=== PATIENT | female | born 1975 | race Caucasian/White ===

== ENCOUNTER 2017-05-07 10:08 | Emergency (ER) | payer OTHER ==
[2017-05-07 10:20] VITALS: BP 112/66; PULSE 66; TEMP 98.1; BMI 23.6
--- NOTE | 2017-05-07 10:47 | PDOC ---
History of Present Illness - General History Source: Patient Exam Limitations: No Limitations - History of Present Illness Initial Comments: 05/07/17 12:25 The patient is a 41 year old female, with a significant past medical history of Ovarian cyst and possible ovarian torsion s/p ooperhectomy in march presents to the emergency department with diffuse abdominal pain for the past 2 days. Patient endorses intermittent, mild, diffuse abdominal pain that radiates to her lower back, Patient reports associated nausea, vomiting and dizziness. Patients pain is similar in nature to her previous episode for which she presented to [facility], had a CT and then a US which showed possible torsion and she was taken to OR and her ovary was removed. Patient denies fever/chills. She denies chest pain, headache. She denies diarrhea or constipation. She denies dysuria, frequency, urgency or hematuria. Pt notes last episode was around 9:30, and her pain is significantly improved. Denies vag bleeding or discharge PSHx: Ovarian cyst removal PCP: None <Zita Smith - Last Filed: 05/07/17 12:24> <Con Whaley - Last Filed: 05/07/17 15:03> - General Chief Complaint: Pain Stated Complaint: ABD PAIN Past History <Zita Smith - Last Filed: 05/07/17 12:24> - Past Medical History Other medical history: denies - Suicide/Smoking/Psychosocial Hx Smoking History: Never smoked Have you smoked in the past 12 months: No Information on smoking cessation initiated: No Hx Alcohol Use: No Drug/Substance Use Hx: No Substance Use Type: None <Con Whaley - Last Filed: 05/07/17 15:03> - Past Medical History Allergies/Adverse Reactions: Allergies Allergy/AdvReac Type Severity Reaction Status Date / Time No Known Allergies Allergy Verified 05/07/17 10:20 Review of Systems - Review of Systems Able to Perform ROS?: Yes Comments:: 05/07/17 12:25 CONSTITUTIONAL: No reported: Fever, Chills, Diaphoresis, Generalized Weakness, Malaise, Loss of Appetite HEENT: No reported: Rhinorrhea, Nasal Congestion, Throat Pain, Throat Swelling, Difficulty Swallowing, Mouth Swelling, Ear Pain, Eye Pain, Visual Changes CARDIOVASCULAR: No reported: Chest Pain, Syncope, Palpitations, Irregular Heart Rate, Lightheadedness, Peripheral Edema RESPIRATORY: No reported: Cough, Shortness of Breath, SOB with Exertion, Orthopnea, Wheezing , Stridor, Hemoptysis GASTROINTESTINAL: +Abdominal pain Nausea, Vomiting. No reported: , Abdominal Distension,, Diarrhea, Constipation, Melena, Hematochezia GENITOURINARY: No reported: Dysuria, Frequency, Urgency, Hesitancy, Flank Pain, Genital Pain MUSCULOSKELETAL: No reported: Myalgia, Arthralgia, Joint Swelling, Back pain, Neck Pain SKIN: No reported: Rash, Itching, Pallor HEMEATOLOGIC/IMMUNOLOGIC: No reported: Easy Bleeding, Easy Bruising, Lymphadenopathy, Frequent infections ENDOCRINE: No reported: Unexplained Weight Gain, Unexplained Weight Loss, Heat Intolerance , Cold Intolerance NEUROLOGIC: No reported: Headache, Focal Weakness, Paresthesias, Vertigo, Lightheadedness, Unsteady Gait, Seizure, Mental Status Changes, Incontinence PSYCHIATRIC: No reported: Anxiety, Depression <Zita Smith - Last Filed: 05/07/17 12:24> *Physical Exam - Vital Signs Last Vital Signs Temp Pulse Resp BP Pulse Ox 98.1 F 66 18 112/66 100 05/07/17 10:18 05/07/17 10:18 05/07/17 10:18 05/07/17 10:18 05/07/17 10:18 - Physical Exam Comments: 05/07/17 12:25 GENERAL: The patient is awake, alert, and fully oriented, Nontoxic - in no acute distress. HEAD: Normocephalic, atraumatic. EYES: extraocular movements intact, sclera anicteric, conjunctiva clear. ENT: Normal voice, Moist mucous membranes. NECK: Normal range of motion, supple LUNGS: Breath sounds equal, clear to auscultation bilaterally. No wheezes, no rhonchi, no rales. HEART: Regular rate and rhythm, without murmur, rub or gallop. ABDOMEN: +Mild diffuse abdominal tenderness. Soft, nontender, normoactive bowel sounds. No guarding, no rebound.No CVA tenderness EXTREMITIES: Normal range of motion, no edema. No clubbing or cyanosis. No cords, erythema, or tenderness. NEUROLOGICAL: No facial asymmetry, Normal speech, PSYCH: Normal mood, normal affect. SKIN: Warm, Dry, normal turgor <Zita Smith - Last Filed: 05/07/17 12:24> - Vital Signs Last Vital Signs Temp Pulse Resp BP Pulse Ox 98.1 F 66 18 112/66 100 05/07/17 10:18 05/07/17 10:18 05/07/17 10:18 05/07/17 10:18 05/07/17 10:18 <Con Whaley - Last Filed: 05/07/17 15:03> Heart Score/ECG Review - ECG Impressions Comment:: 05/07/17 12:54 Twelve-lead EKG was performed and reviewed by me. There is normal sinus rhythm with a rate of 47 The axis is normal. The intervals are normal. There is normal R wave progression There are no ST or T wave abnormalities. Impression: sinus bradycardia <Con Whaley - Last Filed: 05/07/17 15:03> ED Treatment Course - LABORATORY CBC & Chemistry Diagram: 05/07/17 11:46 05/07/17 11:46 - ADDITIONAL ORDERS Additional order review: Laboratory Results 05/07/17 05/07/17 05/07/17 12:00 11:46 11:46 Sodium 138 Potassium 4.1 Chloride 106 Carbon Dioxide 29 Anion Gap 3 L BUN 17 Creatinine 0.6 Creat Clearance w eGFR > 60 Random Glucose 76 Calcium 8.8 Total Bilirubin 0.3 AST 14 L ALT 16 Total Protein 7.3 Albumin 3.8 Lipase 197 Serum , Qual Negative Urine Color Ltyellow Urine Appearance Slcloudy Urine pH 7.0 Urine Protein Negative Urine Glucose (UA) Negative Urine Ketones Negative Urine Blood Negative Urine Nitrite Negative Urine Bilirubin Negative Urine Urobilinogen Negative 05/07/17 11:46 RBC 3.77 MCV 92.9 MCHC 33.2 RDW 13.4 MPV 10.2 Neutrophils % 45.8 Lymphocytes % 44.2 H Monocytes % 8.5 Eosinophils % 1.0 Basophils % 0.5 - Medications Given in the ED: ED Medications Discontinued Medications Generic Name Dose Route Start Last Admin Trade Name Freq PRN Reason Stop Dose Admin Morphine Sulfate 2 mg 05/07/17 11:33 05/07/17 12:13 Morphine Injection - IVPUSH 05/07/17 11:34 2 mg ONCE ONE Administration Ondansetron HCl 4 mg 05/07/17 11:33 05/07/17 12:13 Zofran Injection IVPB 05/07/17 11:34 4 mg ONCE ONE Administration <Zita Smith - Last Filed: 05/07/17 12:24> - LABORATORY CBC & Chemistry Diagram: 05/07/17 11:46 05/07/17 11:46 <Con Whaley - Last Filed: 05/07/17 15:03> Medical Decision Making - Medical Decision Making 05/07/17 11:32 41y F hx of ovarian torsion s/p ooperhectomy in march presents with a similar intermittent abdominal pain since saturday, last episode was approx 9:30 today wassociated w/ n/v w/o fever/chils, dysuria, hematuria, frequency ppts exam noted for mild diffuse abd tenderness will obtain blood work will obtain TVUS to r/o torsion ua to ro will reassess 05/07/17 12:55 05/07/17 14:59 pts blood work reviewed and is unremarakble UA negative pts TVUS is also negative for torsion, +fibroids pt denies any current pain will dc with psychosocial rehabilitation counselor fu return precautionsw ere discussed - i discussed importance of returning immediately if she has any pain rather than waiting a few days. pt states she agrees. I discussed the physical exam findings, ancillary test results and final diagnoses with the patient. I answered all of the patient's questions. The patient was satisfied with the care received and felt comfortable with the discharge plan and treatment plan. The patient will call their primary care physician within 24 hours to arrange follow-up and will return to the Emergency Department with any new, persistent or worsening symptoms. <Con Whaley - Last Filed: 05/07/17 15:03> *DC/Admit/Observation/Transfer - Attestations Scribe Attestion: 05/07/17 12:26 Documentation prepared by Zita Smith, acting as medical artist for Con Whaley MD <Zita Smith - Last Filed: 05/07/17 12:24> - Discharge Dispostion Admit: No <Con Whaley - Last Filed: 05/07/17 15:03> Diagnosis at time of Disposition: Abdominal pain Qualifiers: Abdominal location: generalized Qualified Code(s): R10.84 - Generalized abdominal pain; R10.84 - Generalized abdominal pain - Discharge Dispostion Disposition: HOME Condition at time of disposition: Improved - Referrals Referrals: Duy Duff MD [Staff Physician] - - Patient Instructions Printed Discharge Instructions: DI for Abdominal Pain-Adult Additional Instructions: Return to the emergency department immediately with ANY new, persistent or worsening symptoms including recurrent abdominal pain, fevers, inability to tolerate oral intake, chest pain, shortness of breath or any other concerns. Stay well hydrated. You MUST call and follow up with your doctor and obgyn tomorrow. Your emergency department visit is not complete without a followup with your doctor for reevaluation. Please make sure your doctor reviews the results of your emergency evaluation. Print Language: SLOVENIAN
[2017-05-07] MEDS ORDERED: SODIUM CHLORIDE 500 ML IV STA (11:33)
[2017-05-07] MEDS ORDERED: morphine CARPU-JECT 2 MG/1 ML DISP.SYRIN IVPUSH ONE (11:33)
[2017-05-07] MEDS ORDERED: ONDANSETRON 4 MG/2 ML VIAL IVPB ONE (11:33)
[2017-05-07] MEDS ORDERED: ONDANSETRON 4 MG/2 ML VIAL ONE (12:05)
[2017-05-07] MEDS ORDERED: morphine CARPU-JECT 2 MG/1 ML DISP.SYRIN ONE (12:05)
[2017-05-07 12:08] LABS: URINE APPEARANCE SLCLOUDY; URINE BILIRUBIN NEGATIVE (NEGATIVE); URINE BLOOD NEGATIVE (NEGATIVE); URINE COLOR LTYELLOW; URINE GLUCOSE (UA) NEGATIVE (NEGATIVE); URINE KETONE NEGATIVE (NEGATIVE); URINE LEUK ESTERASE NEGATIVE (NEGATIVE); URINE NITRITE NEGATIVE (NEGATIVE); URINE PROTEIN NEGATIVE (NEGATIVE); URINE UROBILINOGEN NEGATIVE mg/dL (0.2-1.0)
[2017-05-07 12:13] LABS: BASOPHIL 0.5 % (0-2.0); MCH 30.9 pg (25.7-33.7); MCHC 33.2 g/dl (32.0-36.0); MEAN CELL VOLUME 92.9 fl (80-96); MEAN PLT VOLUME 10.2 fl (7.5-11.1); NEUTROPHILS 45.8 % (42.8-82.8); PLATELET COUNT 179 K/MM3 (134-434); RDW 13.4 % (11.6-15.6)
[2017-05-07 12:19] LABS: ALBUMIN 3.8 g/dl (3.4-5.0); ANION GAP 3 (8-16); BILIRUBIN,TOTAL 0.3 mg/dL (0.2-1.0); CALCIUM 8.8 mg/dL (8.5-10.1); CO2 29 mmol/L (21-32); CREATININE 0.6 mg/dL (0.55-1.02); GLUCOSE,RANDOM 76 mg/dL (74-106); SGOT/AST 14 U/L (15-37); SGPT/ALT 16 U/L (12-78); TOT PROT 7.3 g/dl (6.4-8.2)
[2017-05-07 12:20] LABS: ALK PHOS 57 U/L (45-117)
--- NOTE | 2017-05-08 11:01 | EKG ---
Test Reason : Blood Pressure : / mmHG Vent. Rate : 047 BPM Atrial Rate : 047 BPM P-R Int : 180 ms QRS Dur : 090 ms QT Int : 442 ms P-R-T Axes : 044 031 033 degrees QTc Int : 391 ms SINUS BRADYCARDIA WITH MARKED SINUS ARRHYTHMIA OTHERWISE NORMAL ECG NO PREVIOUS ECGS AVAILABLE Confirmed by BEN SONI, ALLEN ([id number]) on 05/08/2017 11:00:45 AM Referred By: Confirmed By:ALLEN CONTRERAS MD
== END 2017-05-07 15:13 | disposition home or self-care (01) ==
LOC: JER 10:08
PROC: 3E033NZ Introduction of Analgesics, Hypnotics, Sedatives into Peripheral Vein, Percutaneous Approach (ICD-10-PCS; principal; 2017-05-07)
PROC: 3E033GC Introduction of Other Therapeutic Substance into Peripheral Vein, Percutaneous Approach (ICD-10-PCS; 2017-05-07)
DX: R10.84 Generalized abdominal pain (principal); D25.9 Leiomyoma of uterus, unspecified; Z90.721 Acquired absence of ovaries, unilateral
CPT/HCPCS: 36415; 76830-TC; 80053; 81003; 83690; 84703; 85025; 93005; 93010; 96374; 96375; 99282-25